=== PATIENT | female | born 1980 | race Caucasian/White ===

== ENCOUNTER 2017-10-24 16:49 | Emergency (ER) | payer OTHER ==
[2017-10-24 17:05] VITALS: BP 129/91
--- NOTE | 2017-10-24 17:14 | ED Physician Documentation ---
Headache - HISTORIAN Historian: patient - HPI Stated Complaint: Migraine Chief Complaint: Headache Additional Information: Patient states that she has had a "migraine headache" for three months. No previous history of headaches. Saw Dr Hood today at [facility] and had blood work done and has been scheduled for CT scan. Was giving IM acetaminophen , started on Imitrix and was given phenergan and IV fluids. No nausea noted. S/ P BTL. Nothing seems to make the headaches worse or better. No precipitating factor noted. No fmaily history of migraine headaches. Has had some depression. Quality: other (no previous headache) Associated Symptoms: denies: fever, chills, sweating - ROS NEURO/PSYCH: depression. denies: confusion, anxiety - PAST HX Medical History: no pertinent history Surgical History: other (BTL, 3 c sections) Immunizations: referred to PCP Allergies/Adverse Reactions: Allergies Allergy/AdvReac Type Severity Reaction Status Date / Time adhesive Allergy Verified 10/24/17 17:06 diphenhydramine HCl Allergy Verified 10/24/17 17:06 [From Benadryl] Home Medications: Ambulatory Orders Medication Instructions Recorded Sumatriptan Succinate [Imitrex] 50 mg PO PRN PRN 10/24/17 - SOCIAL HX Smoking History: greater than 1 pack/day Alcohol Use: rarely Drug Use: none, cocaine - Family HX Family History: none - VITAL SIGNS Vital Signs: Vital Signs Temp Pulse Resp BP Pulse Ox 98.6 F 87 16 129/91 96 10/24/17 16:50 10/24/17 16:50 10/24/17 16:50 10/24/17 16:50 10/24/17 16:50 - REVIEWED ASSESSMENTS Nursing Assessment Reviewed: Yes Vitals Reviewed: Yes Progress - Progress Progress: 18:10 Patient states no change in pain 18:39 Pain seems to be much better at this time. ED Results Lab/Radiology - Lab Results Lab Results: Lab Results 10/24/17 10/24/17 17:45 17:45 WBC 7.10 K/ul K/ul (4.00-12.00) RBC 4.85 M/ul M/ul (3.90-5.20) Hgb 15.8 g/dL g/dL (12.0-16.0) Hct 46.1 % % (34.5-46.5) MCV 95.1 fl fl (80.0-100.0) MCH 32.7 pg pg (28.0-34.0) MCHC 34.4 g/dL g/dL (30.0-36.0) RDW 12.3 % % (11.3-14.3) Plt Count 219 K/mm3 K/mm3 (130-400) Neut % (Auto) 49.4 % % (39.0-79.0) Lymph % (Auto) 36.0 % % (16.0-50.0) Labette % (Auto) 4.6 % % (0.0-11.0) Eos % (Auto) 7.2 % H % (0.0-6.8) Baso % (Auto) 0.9 (0.0-1.5) Neut # (Auto) 3.5 # k/uL # k/uL (1.4-7.7) Lymph # (Auto) 2.5 # k/uL # k/uL (0.6-4.0) Labette # (Auto) 0.3 # k/uL # k/uL (0.0-0.9) Eos # (Auto) 0.5 # k/uL # k/uL (0.0-0.6) Baso # (Auto) 0.1 # k/uL # k/uL (0.0-0.5) Reactive Lymphs % 1.9 % % (0.0-5.0) Reactive Lymphs # 0.1 # k/uL # k/uL (0.0-0.8) Sodium 142 mmol/L mmol/L (136-145) Potassium 3.8 mmol/L mmol/L (3.5-5.1) Chloride 100 mmol/L mmol/L (98-107) Carbon Dioxide 26 mmol/L mmol/L (22-30) BUN 9 mg/dL mg/dL (7-17) Creatinine 0.70 mg/dL mg/dL (0.52-1.04) Estimated Creat Clear 134 Est GFR ( Amer) > 60 (60 - ) Est GFR (Non-Af Amer) > 60 (60 - ) Glucose 82 mg/dL mg/dL (74-106) Calcium 9.5 mg/dL mg/dL (8.4-10.2) Total Bilirubin 0.8 mg/dL mg/dL (0.2-1.3) AST 28 U/L U/L (15-46) ALT 27 U/L U/L (13-69) Alkaline Phosphatase 51 U/L U/L (38-126) Total Protein 7.9 g/dL g/dL (6.3-8.2) Albumin 4.6 g/dL g/dL (3.5-5.0) - Radiology Radiology Impressions: Examination: CT head without contrast History: PATIENT STATES MIGRAINE FOR THREE MONTHS. STATES PAIN IS IN FRONTAL AND TEMPORAL AREAS. DIZZINESS. PATIENT UNABLE TO REMOVE EARRING. (Hx) / BILATERAL HEADACHE FOR 3 MONTHS (DICOM Hx) Comparison exam: None available Technique: Noncontrast head CT protocol. Findings: Ventricles and sulci are appropriate for patient age. Cerebrocerebellar parenchyma demonstrates normal attenuation. No evidence for parenchymal hemorrhage. No evidence for mass or mass effect. No midline shift. No extra axial fluid collections. Partial visualization of the paranasal sinuses , mastoid air cells, orbits, skull and scalp without gross irregularity. Impression: No acute parenchymal process. No hemorrhage. - Orders Orders: ED Orders Category Date Time Status Place IV Lock 1T Care 10/24/17 17:[address] BRAIN W/O CONTRAST Stat Exams 10/24/17 Ordered CBC/PLATELET/DIFF Routine Lab 10/24/17 17:45 Completed CMP Routine Lab 10/24/17 17:45 Completed URINALYSIS Routine Lab 10/24/17 Uncollected Ketorolac Tromethamine [Toradol] Med 10/24/17 17:31 Discontinued 30 mg IVP NOW ONE Ondansetron HCl/Pf [Zofran 4 mg/2 ml] Med 10/24/17 17:30 Discontinued 4 mg IVP NOW ONE fentaNYL CITRATE/PF [Duragesic] Med 10/24/17 18:13 Discontinued 50 mcg IVP NOW ONE Headache Physical Exam - EXAM General Appearance: alert, mild distress EENT: PERRL, other (tenderness to palpation over parietal area bilateral). No: tender temporal artery, pain over sinuses, photophobia, abnml fundi, abnml papilledema, unequal pupils, retinal hemorrhages Neck: normal inspection. No: stiff neck Respiratory: no resp distress, chest non-tender, breath sounds normal. No: wheezes, rales, rhonchi CVS: reg. rate & rhythm, heart sounds nml. No: murmur Abdomen: non-tender, no organomegaly, nml bowel sounds Skin: color nml, no rash Extremitites: non-tender - NEURO/PSYCH Higher Functions: alert, oriented x3, nml speech, mood/affect nml Cranial: nml as tested, no evidence of acute CVA Cerebellar: nml as tested Sensorimotor: motor nml, sensation nml Discharge Clincal Impression: Headache Referrals: Primary Doctor,No [REFERRING] - 2 Days Additional Instructions: Drink a lot of fluids. Try taking some Aleve 2 tablets twice a day with food. Follow-up with your primary care provider. If your symptoms get worse to return to your primary care provider or return to the ED. Condition: Stable Disposition: 01 HOME, SELF-CARE Decision to Admit: NO Date of Decison to Admit: 10/24/17 Decision Time: 18:33
[2017-10-24] MEDS ORDERED: ONDANSETRON HCL/PF 4 MG/ 2ML VIAL IVP ONE (17:30)
[2017-10-24] MEDS ORDERED: KETOROLAC TROMETHAMINE 30 MG/1ML VIAL IVP ONE (17:31)
[2017-10-24 17:53] LABS: BASOPHILS % 0.9 (0.0-1.5); EOSINOPHILS % 7.2 % (0.0-6.8); MEAN CORPUSCULAR HEMOGLOBIN 32.7 pg (28.0-34.0); MEAN CORPUSCULAR VOLUME 95.1 fl (80.0-100.0); MONOCYTES % 4.6 % (0.0-11.0); NEUTROPHILS # 3.5 # k/uL (1.4-7.7)
[2017-10-24 18:06] LABS: eGFR (African) > 60; eGFR (Non-African) > 60
[2017-10-24] MEDS ORDERED: fentaNYL CITRATE/PF 100 MCG/ 2ML AMP IVP ONE (18:13)
--- NOTE | 2017-10-24 19:18 | Diagnostic Imaging Report ---
[facility] [id number] [facility] [address] [place], [place]. [address] Report Submission Date: Oct 24, 2017 6:06:21 PM ELEMENTARY TUTOR Patient Study Name: ABHIJIT DESAI Date: Oct 24, 2017 5:46:52 PM ELEMENTARY TUTOR Modality Type: CT\SR Gender: F Description: CT BRAIN W/O CONTRAST : 84 Institution: [facility] Physician: CARMEN DOS SANTOS Examination: CT head without contrast History: PATIENT STATES MIGRAINE FOR THREE MONTHS. STATES PAIN IS IN FRONTAL AND TEMPORAL AREAS. DIZZINESS. PATIENT UNABLE TO REMOVE EARRING. (Hx) / BILATERAL HEADACHE FOR 3 MONTHS (DICOM Hx) Comparison exam: None available Technique: Noncontrast head CT protocol. Findings: Ventricles and sulci are appropriate for patient age. Cerebrocerebellar parenchyma demonstrates normal attenuation. No evidence for parenchymal hemorrhage. No evidence for mass or mass effect. No midline shift. No extra axial fluid collections. Partial visualization of the paranasal sinuses , mastoid air cells, orbits, skull and scalp without gross irregularity. Impression: No acute parenchymal process. No hemorrhage. Electronically signed on Oct 24, 2017 6:06:21 PM ELEMENTARY TUTOR by: Austin BENDER
[2017-10-25 06:14] LABS: APPEARANCE,URINE CLEAR (CLEAR); COLOR,URINE YELLOW (YELLOW); OCCULT BLOOD,URINE TRACE-INTACT (NEGATIVE); UROBILINOGEN URINE 0.2 Eu (0.2-1.0)
== END 2017-10-24 18:42 | disposition home or self-care (01) ==
LOC: ED 16:49
DX: R51 Headache (principal)
CPT/HCPCS: 70450; 80053; 81002; 85025; J1885; J2405; J3010; 96374; 96375; 99283; S1016

== ENCOUNTER 2018-02-19 15:33 | Emergency (ER) | payer OTHER ==
[2018-02-19 15:46] VITALS: BP 122/85
--- NOTE | 2018-02-19 15:55 | ED Physician Documentation ---
Sore Throat/Dental Pain - HISTORIAN Historian: patient - HPI Stated Complaint: Dental pain Chief Complaint: Dental Pain Further Comments: yes (37 year old female patient presents with complaint to left bottom molar pain. Took 2 ibuprofen this morning with no improvement.) - ROS CONST: no problems CVS/RESP: none GI/: denies: nausea, vomiting MS/SKIN/LYMPH: denies: muscle aches, rash, leg swelling, ankle swelling, other NEURO/PSYCH: none - PAST HX Past History: none Other History: other (migraines) Allergies/Adverse Reactions: Allergies Allergy/AdvReac Type Severity Reaction Status Date / Time adhesive Allergy Verified 02/19/18 15:50 diphenhydramine HCl Allergy Verified 02/19/18 15:50 [From Benadryl] Home Medications: Ambulatory Orders Medication Instructions Recorded Sumatriptan Succinate [Imitrex] 50 mg PO PRN PRN 10/24/17 Penicillin V Potassium [Pen V K] 500 mg PO QID #40 tablet 02/19/18 - SOCIAL HX Smoking History: cigarettes - FAMILY HX Family History: No - VITAL SIGNS Vital Signs: Vital Signs Temp Pulse Resp BP Pulse Ox 98.2 F 80 16 122/85 98 02/19/18 15:42 02/19/18 15:42 02/19/18 15:42 02/19/18 15:42 02/19/18 15:42 - REVIEWED ASSESSMENTS Nursing Assessment Reviewed: Yes Vitals Reviewed: Yes Dental Pain Physical Exam - EXAM General Appearance: mild distress Head/Neck: other (#37 with large cavity noted on lateral aspect. Edema and erythema around gumline. ) Respiratory: no resp. distress CVS: reg. rate & rhythm Skin: warm/dry, normal color Neuro/Psych: No: weakness Discharge Clincal Impression: Pain, dental, Dental caries Prescriptions: Penicillin V Potassium [Pen V K] 500 mg PO QID #40 tablet Referrals: Yevgeniy Palomo MD [Primary Care Provider] - 2 Days Additional Instructions: Ibuprofen 800mg every 8 hours x 3 days Tylenol 650-1000mg every 4 hours as needed for pain, limit your dose to 4G in 24 hours. Over the counter [employer]ek - follow package directions. 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 See your dentist as soon as possible Condition: Stable Disposition: 01 HOME, SELF-CARE Decision to Admit: NO Decision Time: 15:55
[2018-02-19] MEDS ORDERED: KETOROLAC TROMETHAMINE 60 MG/2 ML VIAL IM ONE (15:58)
== END 2018-02-19 16:20 | disposition home or self-care (01) ==
LOC: ED 15:33
DX: K02.9 Dental caries, unspecified (principal); K08.89 Other specified disorders of teeth and supporting structures
CPT/HCPCS: 96372; 99283; J1885

== ENCOUNTER 2018-08-14 09:50 | Emergency (ER) | payer OTHER ==
--- NOTE | 2018-08-14 10:20 | ED Physician Documentation ---
Upper Respiratory Symptoms - HPI Stated Complaint: sore throat Chief Complaint: Sore Throat Additional Information: Intro self as TELEMETRY TECHNICIAN. Pt presents to the ED via POV c/o sore throat x 2 days. pt reports daughter has had strep as well as other family members. pt reports headache and intermittent nausea. pt is a smoker. denies other symptoms or complaints. pt denies current chest pain, dyspnea, syncope/near syncope, headache, dizziness, visual disturbances, n/v/d, fever/chills, rash, sick contacts, dysuria, trauma. melena or hematochezia, bleeding or easy bruising, change in bowel or bladder function. anxiety or depression. ROS Negative unless otherwise specified. - ROS CONST/EYES: weakness - PAST HX Lung Disease: none Other History: other (endometriosis ) Surgeries/Procedures: , other (tubal ligation) Allergies/Adverse Reactions: Allergies Allergy/AdvReac Type Severity Reaction Status Date / Time adhesive Allergy Verified 02/19/18 15:50 diphenhydramine HCl Allergy Verified 02/19/18 15:50 [From Benadryl] Home Medications: Ambulatory Orders Medication Instructions Recorded NK 08/14/18 - SOCIAL HX Smoking History: less than 1 pack/day Alcohol Use: occasionally - FAMILY HX Family History: none - VITAL SIGNS Vital Signs: Vital Signs Temp Pulse Resp BP Pulse Ox 98.8 F 65 14 115/83 100 08/14/18 09:57 08/14/18 09:57 08/14/18 09:57 08/14/18 09:57 08/14/18 09:57 - REVIEWED ASSESSMENTS Nursing Assessment Reviewed: Yes Vitals Reviewed: Yes Upper Respiratory Symptoms - EXAM General Appearance: no acute distress, alert EENT: eyes nml inspection, nml ENT inspection, lids & conjunct. nml, PERRL, ear nml, nose nml, airway nml, pharyngeal erythema, tonsillar exudate (mild) Neck: thyroid normal, supple, lymphadenopathy Respiratory: no resp. distress, breath sounds nml, no pain on inspiration, speaks full sentences, no pleuritic chest pain Abdomen: non-tender, no organomegaly, nml bowel sounds, no distention CVS: reg rate & rhythm, heart sounds normal, equal pulses, no murmur, no gallop, PMI nml, no JVD, no friction rub, 24 Skin: color nml, no rash, warm,dry Extremities: non-tender, normal range of motion, no evidence of injury, no shakira a, J, TELEMETRY TECHNICIAN Neuro/Psych: oriented x3, neuro intact, mood/affect nml Discharge Clincal Impression: Pharyngitis Qualifiers: Pharyngitis/tonsillitis etiology: unspecified etiology Qualified Code(s): J02.9 - Acute pharyngitis, unspecified Additional Instructions: Rest. No work for 3 days. Keflex 500 mg twice a day for 10 days. Increase fluids like gatoraid or other electrolyte replacement seek medical care immediately if difficult to wake or severe weakness, difficulty breathing, feeling faint or fainting, increased rash, chest pain, shortness of breath, or fever not controlled by tylenol/motrin or any concern. follow up with primary care next week or before if not improving as expected. PLEASE UNDERSTAND THAT THIS IS AN EMERGENCY EVALUATION FOR YOUR COMPLAINT AND BY NATURE IS LIMITED AND NOT A SUBSTITUTE FOR ONGOING MEDICAL CARE. EVEN THOUGH TEST RESULTS AND TREATMENT PLAN WERE EXPLAINED THERE MAY BE A NEED FOR ADDITIONAL TESTING TO FULLY DETERMINE THE EXTENT OF YOUR ILLNESS/INJURY/OR CONCERN SO YOU SHOULD CONTACT AND OR ESTABLISH WITH A PRIMARY CARE PROVIDER (OR REFERRAL DOCTOR IF APPLICABLE) FOR AN APPOINTMENT SOON POSSIBLE Condition: Good Disposition: 01 HOME, SELF-CARE Decision to Admit: NO Date of Decison to Admit: 08/14/18 Decision Time: 10:17
[2018-08-14 10:31] VITALS: BP 118/84
== END 2018-08-14 10:30 | disposition home or self-care (01) ==
LOC: ED 09:50
DX: J02.9 Acute pharyngitis, unspecified (principal); Z72.0 Tobacco use
CPT/HCPCS: 99282

== ENCOUNTER 2018-08-27 15:48 | Emergency (ER) | payer OTHER ==
--- NOTE | 2018-08-27 16:25 | ED Physician Documentation ---
Animal Bite - HISTORIAN Historian: patient - HPI Stated Complaint: dog bite Chief Complaint: Animal Bite Onset: just prior to arrival Where: other Animal: dog Context of Attack: "unprovoked" attack Further Comments: yes (37 year old female patient presents with pit bull bite to left 4th finger - nail bed. Patient states she was dropping off an order, went to the wrong house, after entering the home she was bit by a black pit bull. Resident refused to give her name or state whether the dog had had it's vacinations. Last tetanus unknown) - ROS CONST: none EYES/ENT: none CVS/RESP: none NEURO: none GI/: none MS/SKIN/LYMPH: none - PAST HX Past History: none Immunizations: tetanus (given in Er) Allergies/Adverse Reactions: Allergies Allergy/AdvReac Type Severity Reaction Status Date / Time adhesive Allergy Verified 08/27/18 16:21 diphenhydramine HCl Allergy Verified 08/27/18 16:21 [From Benadryl] Home Medications: Ambulatory Orders Medication Instructions Recorded Mupirocin [Bactroban] 1 appl TP BID #1 tube 08/27/18 - SOCIAL HX Smoking History: non-smoker - FAMILY HX Family History: denies: none - VITAL SIGNS Vital Signs: Vital Signs Temp Pulse Resp BP Pulse Ox 98.8 F 90 14 136/80 96 08/27/18 16:06 08/27/18 17:10 08/27/18 17:10 08/27/18 17:10 08/27/18 17:10 - REVIEWED ASSESSMENTS Nursing Assessment Reviewed: Yes Vitals Reviewed: Yes Progress - Progress Progress: Wound cleaned, tetanus given in ER. Bite reported to Dominic SCOTT. ED Results Lab/Radiology - Orders Orders: ED Orders Category Date Time Status Diph,Pertuss(Acell),Tet Vac/Pf [Adacel] Med 08/27/18 16:34 Discontinued 0.5 ml IM .ONCE ONE Animal Bite Physical Exam - Physical Exam General Appearance: mild distress Skin: other (avulsion lac 1 cm to left index finger nail bed) Neuro/Vascular/Tendon: no vascular compromise, oriented x3, sensation nml, CN's nml as tested, ROM nml Abdomen: uninjured,nml inspection, non-tender Back: uninjured, nml inspection Extremities: uninjured, nml inspection, no infection, other (left index finger) Discharge Clincal Impression: Avulsion of skin Dog bite Qualifiers: Encounter type: initial encounter Qualified Code(s): W54.0XXA - Bitten by dog, initial encounter Prescriptions: Mupirocin [Bactroban] 1 appl TP BID #1 tube Referrals: Yevgeniy Palomo MD [Primary Care Provider] - 2 Days Additional Instructions: Clean the wound twice a day with hibiclens and rinse with water clean away any scabbed area Apply thin coat of antibiotic ointment after cleaning the wound. Cover with non-adherent bandage if able. If you have pain, take simple pain relief medication such as Tylenol or ibuprofen. If bandages or dressings get wet, they will need to be changed. Call your doctor for any signs of symptom of infection redness, drainage, pain. Condition: Stable Disposition: 01 HOME, SELF-CARE Decision to Admit: NO Decision Time: 16:24
[2018-08-27] MEDS: DIPH,PERTUSS(ACELL),TET VAC/PF 0.5 ML DISP.SYRIN IM ONE (17:06)
[2018-08-27 17:11] VITALS: BP 136/80
== END 2018-08-27 17:10 | disposition home or self-care (01) ==
LOC: ED 15:48
DX: S61.255A Open bite of left ring finger without damage to nail, initial encounter (principal); W54.0XXA Bitten by dog, initial encounter; Y93.89 Activity, other specified; Y92.009 Unspecified place in unspecified non-institutional (private) residence as the place of occurrence of the external cause
CPT/HCPCS: 90471; 90715; 99282; 99283

== ENCOUNTER 2019-05-24 12:51 | Emergency (ER) | payer SELFPAY ==
[2019-05-24 13:05] VITALS: BP 134/81
--- NOTE | 2019-05-24 14:09 | ED Physician Documentation ---
General Adult - HISTORIAN Historian: patient - HPI Stated Complaint: headache and bodyaches Chief Complaint: General Adult Onset: days ago (3) Timing: still present Severity: moderate Further Comments: yes (Pt is a 38 yo with sinus pressure, chills, body aches x 2 days.) - ROS CONST: chills, other (malaise, muscle ache) EYES/ENT: other (sinus pressure) CVS/RESP: none GI/: none MS/SKIN/LYMPH: none NEURO/PSYCH: headache (sinus headache) - PAST HX Past History: none Allergies/Adverse Reactions: Allergies Allergy/AdvReac Type Severity Reaction Status Date / Time adhesive Allergy Verified 05/24/19 13:03 diphenhydramine HCl Allergy Verified 05/24/19 13:03 [From Benadryl] Home Medications: Ambulatory Orders Medication Instructions Recorded Amoxicillin [Trimox] 500 mg PO TID #30 capsule 05/24/19 - SOCIAL HX Smoking History: cigarettes - FAMILY HX Family History: No - VITAL SIGNS Vital Signs: Vital Signs Temp Pulse Resp BP Pulse Ox 99.2 F 74 19 134/81 99 05/24/19 13:00 05/24/19 13:00 05/24/19 13:00 05/24/19 13:00 05/24/19 13:00 - REVIEWED ASSESSMENTS Nursing Assessment Reviewed: Yes Vitals Reviewed: Yes Progress - Progress Progress: Rx Amoxicillin 500 mg po tid x 10 days. Nasal washes 1 - 2 times daily as tolerated. General Adult Physical Exam - PHYSICAL EXAM GENERAL APPEARANCE: mild distress EENT: pharynx normal, other (sinus tenderness to palpation) NECK: normal inspection, supple RESPIRATORY: no resp distress, chest non-tender, breath sounds normal CVS: reg rate & rhythm, heart sounds normal ABDOMEN: soft, no organomegaly, normal bowel sounds BACK: normal inspection, no CVA tenderness SKIN: warm/dry, normal color EXTREMITIES: non-tender, normal range of motion, no evidence of injury, no edema NEURO: oriented X3, motor nml, sensation nml Discharge Clincal Impression: Sinusitis Qualifiers: Sinusitis location: unspecified location Chronicity: acute Recurrence: non- recurrent Qualified Code(s): J01.90 - Acute sinusitis, unspecified Prescriptions: Amoxicillin [Trimox] 500 mg PO TID #30 capsule Referrals: Yevgeniy Palomo MD [Primary Care Provider] - 2 Days Decision to Admit: NO Decision Time: 14:12
== END 2019-05-24 14:22 ==
LOC: ED 12:51
DX: J01.90 Acute sinusitis, unspecified (principal)
CPT/HCPCS: 99283; 99284

== ENCOUNTER 2019-07-10 14:45 | Emergency (ER) | payer SELFPAY ==
--- NOTE | 2019-07-10 15:02 | ED Physician Documentation ---
General Adult - HISTORIAN Historian: patient - HPI Stated Complaint: back pain Chief Complaint: General Adult Onset: days ago Timing: worse Severity: moderate Further Comments: yes (Pt is a 38 yo female with back pain. Pain is on the lower L side of back, not over spine, and over the L shoulder blade. 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 She attibutes pain to that.) - ROS CONST: no problems EYES/ENT: none CVS/RESP: none GI/: none MS/SKIN/LYMPH: back pain - PAST HX Past History: other (C-sec) Allergies/Adverse Reactions: Allergies Allergy/AdvReac Type Severity Reaction Status Date / Time adhesive Allergy Verified 07/10/19 15:09 diphenhydramine HCl Allergy Verified 07/10/19 15:09 [From Benadryl] Home Medications: Ambulatory Orders Medication Instructions Recorded NK 07/10/19 - SOCIAL HX Smoking History: cigarettes - FAMILY HX Family History: No - VITAL SIGNS Vital Signs: Vital Signs Temp Pulse Resp BP Pulse Ox 134/81 05/24/19 14:21 - REVIEWED ASSESSMENTS Nursing Assessment Reviewed: Yes Vitals Reviewed: Yes Progress - Progress Progress: Toradol 60 mg IM Diazepam 10 mg IM limited improvement offered PT/OT referral, but pt declined Rx Flexeril 10 mg. Take one every 8 hours as needed for muscle spasm. Ibuprofen 200 mg. Take 2 or 3 every 8 hours with food. May start these medications after 6 to 8 hours after leaving the ER. General Adult Physical Exam - PHYSICAL EXAM GENERAL APPEARANCE: moderate distress NECK: normal inspection, supple RESPIRATORY: no resp distress, chest non-tender, breath sounds normal CVS: reg rate & rhythm, heart sounds normal BACK: normal inspection, other (tenderness, L lower lumbar region, and tenderness over L scapula) SKIN: warm/dry, normal color EXTREMITIES: non-tender, normal range of motion, no evidence of injury, no edema NEURO: oriented X3, motor nml, sensation nml Discharge Clincal Impression: back pain/muscle spasm Referrals: Yevgeniy Palomo MD [Primary Care Provider] - Condition: Stable Disposition: 01 HOME, SELF-CARE Decision to Admit: NO Decision Time: 16:15
[2019-07-10 15:08] VITALS: BP 111/69
[2019-07-10] MEDS: KETOROLAC TROMETHAMINE 60 MG/2 ML VIAL IM ONE (15:16)
== END 2019-07-10 16:23 | disposition home or self-care (01) ==
LOC: ED 14:45
DX: M62.838 Other muscle spasm (principal)
CPT/HCPCS: 96372; 99284; J1885; J3360